=== PATIENT | male | born 1960 | race Two or more races ===

== ENCOUNTER 2025-02-11 19:28 | Emergency (ER) | payer MEDICAID, SELFPAY ==
[2025-02-11 19:29] VITALS: BMI 29.5
--- NOTE | 2025-02-11 20:19 | XR_ITS ---
Examination: CT brain head without contrast. 2-D sagittal coronal reconstructions Date and time of exam:February 11, 2025, 2037 hours INDICATIONS: Left-sided vision loss beginning this morning CTDI: vol (mGy):52.2 DLP: (mGycm):1075 Technique: Multiple CT axial sections of the brain have been obtained, 5 mm slice thickness. Contrast has not been administered. 2-D sagittal, coronal reconstructions have been obtained Low dose protocols were performed. One or more of the following dose reduction techniques were used; automated exposure control, adjustment of the mA and/or KV according to patient size, use of iterative reconstruction technique. Findings: No significant ventricular enlargement. Intra-axial or extra-axial hemorrhage density is not seen. No mass effect or midline shift Basal cisterns are not remarkable. Fourth ventricle is midline. Cranial vault intact. Impression: Negative for acute hemorrhage, mass effect or midline shift Given the patient's presentation, consider brain MRI MRA follow-up, stroke protocol
--- NOTE | 2025-02-11 20:20 | PD.EDRME ---
Rapid Medical Screening Exam RME Arrival date/time: 02/11/25 19:28 This is a case of 65-year-old male with no medical history came in in the emergency room due to total vision loss of the left eye no other injury noted no headache no nausea no vomiting noticed Chief Complaint: Eye Problems
[2025-02-11 20:21] VITALS: BP 141/86; PULSE 60; RESP 18; TEMP 37.2; O2SAT 97
[2025-02-12 00:06] VITALS: BP 163/81; PULSE 52; RESP 18; TEMP 37.1; O2SAT 98
--- NOTE | 2025-02-12 05:09 | PD.EDEYE ---
ED Eye Problem RME/HPI General Chief complaint: Eye Problems Stated complaint: UNABLE TO SEE FROM LEFT EYE, SENT BY PCP Arrival date/time: 02/11/25 19:28 RME / HPI RME / HPI Narrative: 02/11/25 19:28 This is a case of 65-year-old male with no medical history came in in the emergency room due to total vision loss of the left eye no other injury noted no headache no nausea no vomiting noticed ------- Dr. Orozco?s Main ED Evaluation: 65yo male with a history of HTN presents after noting scotoma involving left peripheral visual field 2 days [employer] with subsequent decreased central vision, noted initially yesterday morning. Patient reports significant reduced vision left eye. No pain, fever, chills, headache. PMH HTN. No alcoholism or drug abuse. Related Data Home Medications ?Medication ?Instructions ?Recorded ?Confirmed amlodipine 10 mg tablet 10 mg PO QDAY 03/23/21 03/23/21 atorvastatin 20 mg tablet 20 mg PO QDAY 03/23/21 03/23/21 Allergies Allergy/AdvReac Type Severity Reaction Status Date / Time No Known Allergies Allergy Verified 02/11/25 19:31 Review of Systems Review of Systems Systems Reviewed: All systems reviewed, normal except as documented Past Medical History Past Medical History NEUROLOGIC: Negative Neurological Disorders or Seizures CARDIAC: Positive Cardiac Disorders, Hypercholesterolemia and Hypertension; Negative Congestive Heart Failure RESPIRATORY: Negative Chronic Obstructive Pulmonary Disease (COPD) GASTROINTESTINAL: Negative Gastrointestinal Disorders GENITOURINARY: Negative Genitourinary Disorders or Renal Disease MUSCULOSKELETAL: Negative Musculoskeletal Disorders ENDOCRINE: Negative Endocrine Disorders, Diabetes Mellitus Type 1 or Diabetes Mellitus Type 2 HEMATOLOGIC: Negative Blood Disorders OTHER HISTORY: Negative Autoimmune Disease, Blood Transfusions, Anesthesia Reactions or Cancer Family History FAMILY HISTORY: Negative Family Cardiac Disorders Social History SMOKING STATUS: Never smoker ED Exam Narrative Physical exam: GENERAL APPEARANCE: alert and oriented x 4, well-developed, well-nourished, complaining of poor vision involving the left eye, no acute distress VITALS: All vitals were reviewed and the pulse ox is 98% on room air, which is normal according to my interpretation. HEENT: Normocephalic, atraumatic; pupils equal, round, reactive to light; negative manual tonometry, left conjunctiva is mildly injected; mucous membranes pink, moist; oropharynx clear FUNDOSCOPIC: appears to have retinal detachment, visual randall are grossly intact, patient can asertain finger counts at approximately 1 feet NECK: Supple LUNGS: CTABL; no wheezes, no rales, no rhonchi HEART: Regular rate, regular rhythm; normal S1, S2; no murmurs ABDOMEN: non distended; normal BS; soft, no tenderness, no guarding, no rebound; no masses, no organomegaly, no hernia BACK: no CVA tenderness EXTREMITIES: atraumatic; no edema NEUROLOGIC: awake; alert and oriented x4; cranial nerves II-XII grossly intact; no focal sensory or motor deficits PSYCHIATRIC: appropriate mood and affect SKIN: warm, dry, normal color; no rashes Course Quality Measures none Orders Category Date Time Status CT head/brain wo con Stat Exams 02/11/25 20:19 Completed Vital Signs Vital signs: Vital Signs Temperature 98.9 F 02/11/25 20:21 Pulse Rate 60 02/11/25 20:21 Respiratory Rate 18 02/11/25 20:21 Blood Pressure 141/86 H 02/11/25 20:21 Pulse Oximetry (%) 97 02/11/25 20:21 Oxygen Delivery Method Room Air 02/11/25 20:21 Eye MDM Narrative MDM Narrative:: Scribe Attestation: 02/12/25 - Mimi Leonardo am scribing for and in the presence of Dr. Orozco. 65yo male with a history of HTN presents after noting scotoma involving left peripheral visual field 2 days [employer] with subsequent decreased sensual vision, noted initially yesterday morning. Patient reports significant red vision left eye. Please see PE findings. CT head unremarkable for acute process. Patient with fundoscopic evidence of a retinal detachment. Will refer to outpatient ophthalmology at [facility] and recommend head of bed elevation, avoidance of increased valsalva. Dx: retinal detachment. Patient data External records reviewed:: [facility] previous records (Per chart review, patient has no previous ED visits or admissions to this facility.) Clinical information provided by:: patient Social determinants that could affect healthcare access:: none Patient has the following chronic illnesses:: HTN, HLD How is presenting disease/condition affected by chronic disease/condition?: uneffected by Evaluation data The following diagnostics were reviewed and interpreted by me:: radiology exam(s) Lab and/or radiology exams considered but not ordered:: none Interpretation Summary: [facility] Report Signed Patient: JAYMIE GLEZ. Record#: [id number] Birthdate: 1960 Age/Sex: 65 / M Location: [facility] Attending Dr: Ordering Physician: Makayla Villatoro Date of Service: 02/11/25 Procedure(s): CT head/brain wo con Accession Number(s): [id number] cc: Panda Serra MD; NO PRIMARY/FAMILY,PHYSICIAN; Makayla Villatoro~ Examination: CT brain head without contrast. 2-D sagittal coronal reconstructions Date and time of exam:February 11, 2025, 2037 hours INDICATIONS: Left-sided vision loss beginning this morning CTDI: vol (mGy):52.2 DLP: (mGycm):1075 Technique: Multiple CT axial sections of the brain have been obtained, 5 mm slice thickness. Contrast has not been administered. 2-D sagittal, coronal reconstructions have been obtained Low dose protocols were performed. One or more of the following dose reduction techniques were used; automated exposure control, adjustment of the mA and/or KV according to patient size, use of iterative reconstruction technique. Findings: No significant ventricular enlargement. Intra-axial or extra-axial hemorrhage density is not seen. No mass effect or midline shift Basal cisterns are not remarkable. Fourth ventricle is midline. Cranial vault intact. Impression: Negative for acute hemorrhage, mass effect or midline shift Given the patient's presentation, consider brain MRI MRA follow-up, stroke protocol Dictated By: Panad Serra MD Signed By: <Electronically signed by Panda Serra MD in [place]> 02/11/252119 Medications / Prescriptions Medications or Prescriptions considered but not ordered:: none Medication administrations:: none Consultations Consultation(s) initiated? (list below): No Diagnosis Eye Problem Differential Diagnosis: subconjunctival hemorrhage, glaucoma, corneal ulcer and other (retinal detachment) Most likely diagnosis given after review of the tests above:: see clinical impression below Admission Indicated Admission indicated?: not indicated Admission Request Was there a request for admission?: No Disposition Plan Disposition Plan: Discharge Discharge Attestation Discharge Attestation: The patient and all family members were given an opportunity to ask questions and understood the discharge instructions. Discharge instructions specifically effects, indications for sooner follow up or return to the emergency department, and the expected course of current diagnosis. Patient condition: Stable Discharge Plan Plan Patient Disposition: HOME (Self Care) Discharge Disposition comment: Stable Prescriptions/Referrals Prescriptions/Med Rec: No Action atorvastatin 20 mg Tablet 20 mg PO QDAY amlodipine 10 mg Tablet 10 mg PO QDAY Referrals: No Primary/Family,Physician [Primary Care Provider] - In 1 week Problem List Clinical Impression: Retinal detachment of left eye due to tear of retina Impression comment: Retinal detachment Patient/Caregiver Discharge Instructions Other Activity Instructions:: Maintain head of bed elevation. Avoid excessive coughing straining etc. Education Materials: ED Retinal Detachment Additional Instructions: Maintain head of bed elevated elevation. Follow-up with ophthalmology clinic at [phone] within 2-3 days Print Language: Greenlandic Stand Alone Forms: Susana Award Info., Patient Portal Info Letter
[2025-02-12 08:24] VITALS: BP 167/77; PULSE 65; RESP 16; TEMP 36.8; O2SAT 99
== END 2025-02-12 08:30 | disposition home or self-care (01) ==
PROVIDERS: Emergency Provider Emergency Medicine
DX: H33.012 Retinal detachment with single break, left eye (principal); I10 Essential (primary) hypertension
CPT/HCPCS: 70450; 99283